=== PATIENT | female | born 1985 | race Caucasian/White ===

== ENCOUNTER 2018-12-13 12:06 | Day surgery (SDC) | payer BC ==
[~2018-12-13 12:06] MED LIST: ACETAMINOPHEN 1,000 MG/100 ML BTL IV ONE; CEFAZOLIN 2 Gram 2 GM/50 ML BAG IVPB ONE; MECLIZINE 25 MG TABLET PO ONE
[2018-12-13] MEDS ORDERED: DEXAMETHASONE 4 MG/ML 1ML VIAL IVP ONE (12:07)
[2018-12-13] MEDS ORDERED: MIDAZOLAM HCL 2MG/2ML VIAL IV ONE (12:07)
[2018-12-13] MEDS ORDERED: SEVOFLURANE 250 ML INH ONE (12:07)
[2018-12-13] MEDS ORDERED: SCOPOLAMINE 1 PATCH TDSY TD ONE (12:07)
[2018-12-13] MEDS ORDERED: METHYLPREDNISOLONE 40MG/VIAL IM ONE (12:07)
[2018-12-13] MEDS ORDERED: FENTANYL PF 100MCG/2ML VIAL IV ONE (12:07)
[2018-12-13] MEDS ORDERED: ONDANSETRON HCL IV 4 MG/2 ML VIAL IVP ONE (12:07)
[2018-12-13] MEDS ORDERED: BUPIVACAINE 0.5% W/EPI MPF 30 ML VIAL IVP ONE (12:07)
[2018-12-13] MEDS ORDERED: LIDOCAINE 2% MDV (20MG/ML) 20ML VIAL IV ONE (12:07)
[2018-12-13] MEDS ORDERED: PROPOFOL 10 MG/ML VIAL IV ONE (12:07)
[2018-12-13] MEDS ORDERED: MORPHINE SULFATE 4 MG/ML VIAL ONE (15:08)
--- NOTE | 2018-12-14 10:39 | Operative Note ---
DATE OF SURGERY: 12/13/2018 PREOPERATIVE DIAGNOSIS: Internal derangement, right knee. POSTOPERATIVE DIAGNOSES: 1. Grade 3 chondromalacia patella. 2. Flap tear involving the anteromedial horn of the medial meniscus. 3. Intact ACL autograft. 4. Complex tear involving the anterior and posterior horn of the lateral meniscus. OPERATION: 1. Right knee arthroscopy with partial lateral meniscectomy. 2. Right knee arthroscopy with chondroplasty of the patella. Staff Surgeon: Dhruv Hawkins MD Anesthesia: General. Preparation: Chloraprep. Individual Considerations: None. PROCEDURE: The patient was taken to the operating room and placed supine on the operating room table. The patient had a successful induction with general anesthetic. The right lower extremity was prepped and draped in the usual fashion. Examination under anesthesia shows normal ligaments. The patient had a superolateral inflow cannula placed. Skin was infiltrated with 0.5% Marcaine with epinephrine prior. The knee was inflated with normal saline. An inferomedial and an inferolateral portal were made in a similar fashion. The arthroscope was introduced through the inferolateral portal up into the pouch. The patellofemoral compartment showed grade 3 change centrally on the patella, which was smoothed with a shaver. No loose bodies were seen in the pouch or either gutter. Medially she had anteromedial horn flap tear of the medial meniscus, which was debrided back to a stable rim with a shaver. The remainder of the meniscus and articular cartilage medially was normal. In the notch, it looked like her reconstructed ACL autograft was intact. There was some scar around it. PCL was intact. Laterally, she had a flap tear of the anterior horn of the lateral meniscus, which was debrided with a shaver. It looked like she had most of her posterior horn debrided out but there was a new retaining flap posterolaterally, which was debrided back to a stable horn with a shaver. Articular cartilage was relatively intact. After irrigation, portals were closed with zechariah, and 20 mL of 0.5% Marcaine with epinephrine along with 4 mg of morphine and 40 mg of Depo-Medrol were injected into the knee. A sterile bulky compressive dressing was applied. The patient tolerated procedure well. Needle and sponge counts were correct. Estimated blood loss was minimal. She was taken back to recovery in good condition. There were no complications. [facility]
== END 2018-12-13 16:35 | disposition home or self-care (01) ==
LOC: SUR 12:06
PROVIDERS: ATTEND Orthopaedic Surgery
DX: S83.271A Complex tear of lateral meniscus, current injury, right knee, initial encounter (principal); S83.241A Other tear of medial meniscus, current injury, right knee, initial encounter; M22.41 Chondromalacia patellae, right knee
CPT/HCPCS: 29881; 01400; 81025; J2405; J3010; J0690; J2270; J1030